=== PATIENT | male | born 1990 | race Caucasian/White ===

== ENCOUNTER 2019-09-06 08:30 | Emergency (ER) | payer BC ==
[~2019-09-06] VITALS: Ht 185.4 cm; Wt 69.9 kg
[2019-09-06 08:37] VITALS: Ht 185.4 cm; Wt 69.9 kg
[2019-09-06 11:09] VITALS: BP 121/78
== END 2019-09-06 11:09 | disposition home or self-care (01) ==
LOC: ED 08:30
DX: J32.0 Chronic maxillary sinusitis (principal)

== ENCOUNTER 2019-11-21 13:00 | Emergency (ER) | payer BC ==
[~2019-11-21] VITALS: Ht 185.4 cm; Wt 70.3 kg
[2019-11-21 13:07] VITALS: Ht 185.4 cm; Wt 70.3 kg
[2019-11-21 13:47] VITALS: BP 121/73
== END 2019-11-21 13:54 | disposition home or self-care (01) ==
LOC: ED 13:00
DX: R09.81 Nasal congestion (principal); R51 Headache; R05 Cough; Z13.89 Encounter for screening for other disorder